=== PATIENT | female | born 1995 | race Caucasian/White ===

== ENCOUNTER 2023-06-18 14:52 | Outpatient (CLI) | payer OTHER ==
[~2023-06-18 14:52] MED LIST: PRENATAL TABLET PO
--- NOTE | 2023-06-18 14:52 | NUR ---
PT AMBULATED ON THE UNIT WITH AND CHILD FOR A SCHEDULED BETAMETHASONE INJECTION. PT HAD COMPLAINTS OF CONTRACTIONS WITH NO LOF/VB.PT ALSO STATED" I HAVENT FELT THE BABY MOVE AT ALL TODAY". POC REVIEWED WITH PT AND PT VERBALIZES UNDERSTANDING.
--- NOTE | 2023-06-18 15:44 | NUR ---
1500 DR HAYNES INFORMED OF PT STATUS.DR HAYNES ADVISED TO CHECK THE PT CERVIX AND GIVE THE PT INJECTION AND MONITOR FOR 30 MINS FROM TIME OF ARRIVAL. 1531 EFM TRACING CATEGORY 1. CONTRACTION EVERY 5 MINUTES.SVE PER STEPHANIE 3. [address] HAYNES,SEND PT HOME WITH MAKING AN APPOINTMENT WITH [facility] WITHIN THE NEXT WEEK.THIS RN EDUCATED THE PT ON SIGNS OF EARLY LABOR.REMINDED THE PT TO CALENDERER THE PRESCRIPTION FROM DR LEE AT EARLIEST CONVENIENCE.PT VERBALIZES UNDERSTANDING.
== END 2023-06-18 15:44 | disposition home or self-care (01) ==
LOC: LDRO 14:52
DX: O42.913 Preterm premature rupture of membranes, unspecified as to length of time between rupture and onset of labor, third trimester (principal); Z3A.32 32 weeks gestation of pregnancy
CPT/HCPCS: J0702